=== PATIENT | female | born 1975 | race Caucasian/White ===

== ENCOUNTER 2017-07-19 19:00 | Emergency (ER) | payer BC ==
[2017-07-19] MEDS: LIDO:MAALOX:DONNATAL 1:1:1 15 ML SINGLE DOSE SWSW ×2 (20:39)
== END 2017-07-19 21:56 | disposition home or self-care (01) ==
LOC: ER 19:00
DX: R07.89 Other chest pain (principal); J45.909 Unspecified asthma, uncomplicated; E11.9 Type 2 diabetes mellitus without complications; F20.9 Schizophrenia, unspecified; K21.9 Gastro-esophageal reflux disease without esophagitis; Z88.0 Allergy status to penicillin; Z79.899 Other long term (current) drug therapy; Z98.51 Tubal ligation status
CPT/HCPCS: 71046; 93005; 99284-25

== ENCOUNTER → 2017-08-05 | Outpatient (CLI) | payer BC ==
[2017-08-05 14:59] LABS: ADD MAN DIFF? NO
[2017-08-05 15:01] LABS: BASO % 1 % (0-3); EOS % 0 % (0-3); HEMATOCRIT 39.9 % (36.0-47.0); HEMOGLOBIN 13.2 g/dL (12.0-15.5); LYMPH # 2.4 x10^3/uL (1.0-4.8); LYMPH % 27 % (24-48); MEAN CORPUSCULAR HEMOGLOBIN 25 pg (25-35); MEAN CORPUSCULAR HGB CONC 33 g/dL (31-37); MEAN CORPUSCULAR VOLUME 76 fL (79-100); MONO # 0.7 x10^3/uL (0.0-1.1); MONO % 8 % (0-9); NEUT # 5.6 x10^3uL (1.8-7.7); NEUT % 64 % (31-73); PLATELET COUNT 228 x10^3/uL (140-400); RED BLOOD COUNT 5.22 x10^6/uL (3.50-5.40); RED CELL DISTRIBUTION WIDTH 25.8 % (11.5-14.5); WHITE BLOOD COUNT 8.7 x10^3/uL (4.0-11.0)
[2017-08-05 15:11] LABS: BILIRUBIN,URINE NEGATIVE (NEG); CLARITY,URINE CLEAR; COLOR,URINE YELLOW; GLUCOSE,URINE NEGATIVE (NEG); NITRITE,URINE NEGATIVE (NEG); PH,URINE 5.5; PROTEIN,URINE NEGATIVE (NEG-TRACE); UROBILINOGEN,URINE 0.2 mg/dL (0.2 mg/dL)
[2017-08-05 15:20] LABS: BACTERIA,URINE FEW /HPF (0-FEW); RBC,URINE 0 /HPF (0-2); SQUAMOUS EPITHELIAL CELL,UR OCC /LPF; WBC,URINE OCC /HPF (0-4)
[2017-08-05 15:31] LABS: ALBUMIN 3.7 g/dL (3.4-5.0); ALBUMIN/GLOBULIN RATIO 1.2 (1.0-1.7); ALK PHOS 106 U/L (46-116); ALT (SGPT) 52 U/L (14-59); ANION GAP 12 (6-14); AST (SGOT) 31 U/L (15-37); BLOOD UREA NITROGEN 10 mg/dL (7-20); BUN/CREATININE RATIO 17 (6-20); CALCIUM 8.8 mg/dL (8.5-10.1); CARBON DIOXIDE 25 mmol/L (21-32); CHLORIDE 101 mmol/L (98-107); CREATININE 0.6 mg/dL (0.6-1.0); GFR 110.7; GLUCOSE 99 mg/dL (70-99); POTASSIUM 4.1 mmol/L (3.5-5.1); SODIUM 138 mmol/L (136-145); TOTAL BILIRUBIN 0.3 mg/dL (0.2-1.0); TOTAL PROTEIN 6.8 g/dL (6.4-8.2)
[2017-08-05 15:57] LABS: PLT ESTIMATE ADEQUATE (ADEQUATE); POLYCHROMASIA SLIGHT
[2017-08-05 15:58] LABS: CRENATED RBC PRESENT; OVALOCYTES OCC
== END | disposition home or self-care (01) ==
LOC: SURGPAT 13:48
DX: Z01.818 Encounter for other preprocedural examination (principal); E11.9 Type 2 diabetes mellitus without complications; J45.909 Unspecified asthma, uncomplicated
CPT/HCPCS: 36415; 80053; 81001; 85025

== ENCOUNTER 2017-08-12 06:46 | Inpatient (IN) | payer BC ==
[2017-08-12] MEDS ORDERED: MORPHINE SULFATE 4 MG/ML DISP.SYRIN. IV (07:00)
[2017-08-12] MEDS ORDERED: ONDANSETRON PF 4 MG/2 ML VIAL. IV (07:00)
[2017-08-12] MEDS ORDERED: fentaNYL PF VIAL 100 MCG/2 ML VIAL IV (07:00)
[2017-08-12] MEDS ORDERED: LIDOCAINE 1% PF 2 ML VIAL. ID (07:00)
[2017-08-12 07:20] LABS: POC GLUCOSE 153 mg/dL (70-99)
[2017-08-12] MEDS: IV RINGERS,LACTATED 1000ML 1,000 ML IV ×2 (07:24→07:25)
[2017-08-12] MEDS ORDERED: ONDANSETRON PF 4 MG/2 ML VIAL. (08:10)
[2017-08-12] MEDS ORDERED: DEXAMETHASONE SOD PHOS 20 MG/5 ML VIAL. (08:10)
[2017-08-12] MEDS ORDERED: KETOROLAC 30 MG/ML INJ FOR OR. INJ (08:10)
[2017-08-12] MEDS ORDERED: ROCURONIUM 50 MG/5 ML VIAL. (08:10)
[2017-08-12] MEDS ORDERED: SEVOFLURANE 61 TO 120 MINUTES. IH (08:10)
[2017-08-12] MEDS ORDERED: fentaNYL PF VIAL 100 MCG/2 ML VIAL (08:12)
[2017-08-12 08:20] LABS: NEG OBC UR NEG; POS OBC UR POS; U PREG PATIENT NEGATIVE (NEG)
[2017-08-12] MEDS: CLINDAMYCIN 900MG PREMIX 50 ML IV (08:32)
[2017-08-12] MEDS: BUPIVAC MPF-EPI 0.5%-1:200000 30 ML VIAL. INJ (09:02)
[2017-08-12] MEDS ORDERED: diphenhydrAMINE 50 MG/ML VIAL IV (10:15)
[2017-08-12] MEDS ORDERED: ZOLPIDEM 5 MG TABLET. PO (10:15)
[2017-08-12] MEDS ORDERED: NALOXONE 0.4 MG/ML VIAL. IV (10:15)
[2017-08-12] MEDS ORDERED: MAG HYDROX/ALUMINUM HYD/SIMETH 30 ML ORAL.SUSP PO (10:15)
[2017-08-12] MEDS ORDERED: LACTULOSE 20 GM/30 ML SOLUTION. PO (10:15)
[2017-08-12] MEDS ORDERED: diphenhydrAMINE HCL 25 MG CAPSULE PO (10:15)
[2017-08-12] MEDS ORDERED: 0.9 % SODIUM CHLORIDE 10 ML DISP.SYRIN. IV (10:15)
[2017-08-12] MEDS ORDERED: MAGNESIUM HYDROXIDE 2,400 MG/30 ML ORAL.SUSP. PO (10:15)
[2017-08-12] MEDS ORDERED: CALCIUM CARBONATE 500 MG TAB.CHEW PO (10:15)
[2017-08-12] MEDS: PROCHLORPERAZINE 10 MG/2 ML VIAL. IV (10:40)
[2017-08-12] MEDS: fentaNYL PF VIAL 100 MCG/2 ML VIAL IV ×2 (10:42→11:22)
[2017-08-12] MEDS ORDERED: BUPIVAC MPF-EPI 0.5%-1:200000 30 ML VIAL. INJ (10:45)
[2017-08-12 11:15] LABS: POC GLUCOSE 201 mg/dL (70-99)
[2017-08-12] MEDS: oxyCODONE/APAP 5/325 1 TAB TABLET PO (12:11)
[2017-08-12 14:13] LABS: POC GLUCOSE 300 mg/dL (70-99)
[2017-08-12] MEDS ORDERED: DEXTROSE 50% 25 GM / 50ML DISP.SYRIN. IV (15:15)
[2017-08-12] MEDS: PARoxetine 20 MG TABLET PO (15:31)
[2017-08-12] MEDS: ONDANSETRON PF 4 MG/2 ML VIAL. IV (15:32)
[2017-08-12] MEDS: KETOROLAC 30 MG/ML INJ. IV (15:32)
[2017-08-12] MEDS: INSULIN ASPART 300 UNITS/3 ML INSULN.PEN SQ (15:36)
[2017-08-12 16:21] LABS: HEMATOCRIT 31.5 % (36.0-47.0); HEMOGLOBIN 10.3 g/dL (12.0-15.5); MEAN CORPUSCULAR HEMOGLOBIN 26 pg (25-35); MEAN CORPUSCULAR HGB CONC 33 g/dL (31-37); MEAN CORPUSCULAR VOLUME 78 fL (79-100); PLATELET COUNT 249 x10^3/uL (140-400); RED BLOOD COUNT 4.05 x10^6/uL (3.50-5.40); RED CELL DISTRIBUTION WIDTH 24.7 % (11.5-14.5); WHITE BLOOD COUNT 16.6 x10^3/uL (4.0-11.0)
[2017-08-12 16:38] LABS: POC GLUCOSE 252 mg/dL (70-99)
[2017-08-12] MEDS: HYDROcodone/APAP 5/325MG 1 TAB TABLET PO ×2 (17:53→22:17)
[2017-08-12 20:31] LABS: POC GLUCOSE 195 mg/dL (70-99)
[2017-08-12] MEDS: TOPIRAMATE 100 MG TABLET. PO (21:00)
[2017-08-12] MEDS: SIMETHICONE 80 MG TAB.CHEW PO (22:18)
[2017-08-12] MEDS: cloZAPine 100 MG TABLET PO (22:19)
[2017-08-12] MEDS ORDERED: AMMONIA AROMATIC 15% INHALANT AMPUL. ×2 (23:00→23:23)
[2017-08-13] MEDS: HYDROcodone/APAP 5/325MG 1 TAB TABLET PO ×4 (00:51→21:42)
[2017-08-13 06:57] LABS: ANION GAP 9 (6-14); BLOOD UREA NITROGEN 13 mg/dL (7-20); CALCIUM 8.1 mg/dL (8.5-10.1); CARBON DIOXIDE 22 mmol/L (21-32); CHLORIDE 105 mmol/L (98-107); CREATININE 0.9 mg/dL (0.6-1.0); GFR 69.3; GLUCOSE 165 mg/dL (70-99); SODIUM 136 mmol/L (136-145)
[2017-08-13 06:58] LABS: POTASSIUM 5.2 mmol/L (3.5-5.1)
[2017-08-13] MEDS: INSULIN ASPART 300 UNITS/3 ML INSULN.PEN SQ (08:00)
[2017-08-13 08:07] LABS: ADD MAN DIFF? NO
[2017-08-13 08:12] LABS: BASO % 0 % (0-3); EOS % 0 % (0-3); HEMATOCRIT 25.4 % (36.0-47.0); HEMOGLOBIN 8.2 g/dL (12.0-15.5); LYMPH # 1.9 x10^3/uL (1.0-4.8); LYMPH % 17 % (24-48); MEAN CORPUSCULAR HEMOGLOBIN 25 pg (25-35); MEAN CORPUSCULAR HGB CONC 32 g/dL (31-37); MEAN CORPUSCULAR VOLUME 78 fL (79-100); MONO # 0.9 x10^3/uL (0.0-1.1); MONO % 8 % (0-9); NEUT # 8.4 x10^3uL (1.8-7.7); NEUT % 75 % (31-73); PLATELET COUNT 201 x10^3/uL (140-400); RED BLOOD COUNT 3.25 x10^6/uL (3.50-5.40); RED CELL DISTRIBUTION WIDTH 24.4 % (11.5-14.5); WHITE BLOOD COUNT 11.2 x10^3/uL (4.0-11.0)
[2017-08-13 08:29] LABS: POC GLUCOSE 147 mg/dL (70-99)
[2017-08-13] MEDS: PARoxetine 20 MG TABLET PO (09:00)
[2017-08-13] MEDS: TOPIRAMATE 100 MG TABLET. PO ×2 (09:00→21:00)
[2017-08-13] MEDS: FERROUS SULFATE 325 MG TABLET. PO ×2 (09:30→17:00)
[2017-08-13 10:21] LABS: INR 1.1 (0.8-1.1); PARTIAL THROMBOPLASTIN TIME 22 SEC (24-38); PROTHROMBIN TIME PATIENT 13.6 SEC (11.7-14.0)
[2017-08-13 10:46] LABS: ANISOCYTOSIS MOD; OVALOCYTES PRESENT; PLT ESTIMATE ADEQUATE (ADEQUATE); POIKILOCYTOSIS PRESENT
[2017-08-13 11:37] LABS: POC GLUCOSE 149 mg/dL (70-99)
[2017-08-13] MEDS ORDERED: IV RINGERS,LACTATED 1000ML 1,000 ML IV (12:50)
[2017-08-13] MEDS ORDERED: ONDANSETRON PF 4 MG/2 ML VIAL. IV ×2 (13:00→17:45)
[2017-08-13] MEDS ORDERED: LIDOCAINE 1% PF 2 ML VIAL. ID (13:00)
[2017-08-13] MEDS ORDERED: PROCHLORPERAZINE 10 MG/2 ML VIAL. IV (13:00)
[2017-08-13] MEDS ORDERED: fentaNYL PF VIAL 100 MCG/2 ML VIAL IV ×3 (13:00→20:30)
[2017-08-13] MEDS ORDERED: MORPHINE SULFATE 4 MG/ML DISP.SYRIN. IV ×2 (13:00→18:30)
[2017-08-13] MEDS ORDERED: CLINDAMYCIN 900MG PREMIX 50 ML IV ×2 (13:14→13:30)
[2017-08-13 13:31] LABS: HEMATOCRIT 22.8 % (36.0-47.0); HEMOGLOBIN 7.6 g/dL (12.0-15.5); MEAN CORPUSCULAR HEMOGLOBIN 26 pg (25-35); MEAN CORPUSCULAR HGB CONC 34 g/dL (31-37); MEAN CORPUSCULAR VOLUME 78 fL (79-100); PLATELET COUNT 186 x10^3/uL (140-400); RED BLOOD COUNT 2.92 x10^6/uL (3.50-5.40); RED CELL DISTRIBUTION WIDTH 24.1 % (11.5-14.5); WHITE BLOOD COUNT 9.8 x10^3/uL (4.0-11.0)
[2017-08-13] MEDS ORDERED: PROPOFOL 20 ML IV (13:55)
[2017-08-13] MEDS ORDERED: ROCURONIUM 50 MG/5 ML VIAL. ×2 (13:55→15:01)
[2017-08-13] MEDS ORDERED: DEXAMETHASONE SOD PHOS 20 MG/5 ML VIAL. (13:55)
[2017-08-13] MEDS ORDERED: LIDOCAINE 2% PF Vial for OR 5 ML VIAL. (13:55)
[2017-08-13] MEDS ORDERED: ONDANSETRON PF 4 MG/2 ML VIAL. (13:55)
[2017-08-13] MEDS ORDERED: fentaNYL PF VIAL 100 MCG/2 ML VIAL ×2 (13:57→20:26)
[2017-08-13] MEDS ORDERED: MIDAZOLAM HCL/PF 2 MG/2 ML VIAL. (13:57)
[2017-08-13] MEDS ORDERED: SUCCINYLCHOLINE 200 MG/10 ML VIAL. (13:57)
[2017-08-13] MEDS ORDERED: METHYLENE BLUE 1% 10 ML VIAL. (14:00)
[2017-08-13] MEDS ORDERED: CLINDAMYCIN PREMIX 900 MG/50 ML BAG IV (14:00)
[2017-08-13] MEDS ORDERED: 0.9 % SODIUM CHLORIDE 50 ML VIAL. IJ (14:00)
[2017-08-13] MEDS: BUPIVACAINE-EPI 0.25%-1:200000 50 ML VIAL. (14:42)
[2017-08-13] MEDS ORDERED: NEOSTIGMINE 10 MG/10 ML VIAL. (15:04)
[2017-08-13] MEDS ORDERED: GLYCOPYRROLATE 1 MG/5 ML VIAL. (15:05)
[2017-08-13] MEDS ORDERED: ALBUMIN HUMAN 5% 500 ML IV (15:19)
[2017-08-13] MEDS ORDERED: PHENYLEPHRINE 10 MG/ML VIAL. (15:27)
[2017-08-13] MEDS ORDERED: DESMOPRESSIN 20 MCG in IV NORMAL SALINE 50ML 50 ML IV (16:30)
[2017-08-13 17:00] LABS: IMMEDIATE SPIN CROSSMATCH 1
[2017-08-13] MEDS ORDERED: LACTULOSE 20 GM/30 ML SOLUTION. PO (17:45)
[2017-08-13] MEDS ORDERED: CALCIUM CARBONATE 500 MG TAB.CHEW PO (17:45)
[2017-08-13] MEDS ORDERED: diphenhydrAMINE 50 MG/ML VIAL IV (17:45)
[2017-08-13] MEDS ORDERED: NALOXONE 0.4 MG/ML VIAL. IV (17:45)
[2017-08-13] MEDS ORDERED: MAGNESIUM HYDROXIDE 2,400 MG/30 ML ORAL.SUSP. PO (17:45)
[2017-08-13] MEDS ORDERED: SIMETHICONE 80 MG TAB.CHEW PO (17:45)
[2017-08-13] MEDS ORDERED: DEXTROSE 50% 25 GM / 50ML DISP.SYRIN. IV (17:45)
[2017-08-13] MEDS ORDERED: diphenhydrAMINE HCL 25 MG CAPSULE PO (17:45)
[2017-08-13] MEDS ORDERED: MAG HYDROX/ALUMINUM HYD/SIMETH 30 ML ORAL.SUSP PO (17:45)
[2017-08-13] MEDS ORDERED: 0.9 % SODIUM CHLORIDE 10 ML DISP.SYRIN. IV (17:45)
[2017-08-13] MEDS ORDERED: oxyCODONE/APAP 5/325 1 TAB TABLET PO (17:45)
[2017-08-13 17:47] LABS: IMMEDIATE SPIN CROSSMATCH 1
[2017-08-13 18:16] LABS: POC GLUCOSE 210 mg/dL (70-99)
[2017-08-13] MEDS: INSULIN ASPART 100 UNIT/ML 10ML VIAL. SQ (18:31)
[2017-08-13] MEDS ORDERED: diphenhydrAMINE 50 MG/ML VIAL IVP (19:00)
[2017-08-13] MEDS: diphenhydrAMINE 50 MG/ML VIAL IVP (19:04)
[2017-08-13] MEDS ORDERED: ALBUTEROL SULFATE 2.5 MG/3 ML NEBU. (19:13)
[2017-08-13] MEDS: ALBUTEROL SULFATE 2.5 MG/3 ML NEBU. NEB (19:19)
[2017-08-13 19:23] LABS: FIBRINOGEN 133 mg/dL (200-440); INR 1.2 (0.8-1.1); PARTIAL THROMBOPLASTIN TIME 24 SEC (24-38); PROTHROMBIN TIME PATIENT 14.7 SEC (11.7-14.0)
[2017-08-13 19:24] LABS: BASO % 0 % (0-3); EOS % 0 % (0-3); HEMATOCRIT 28.5 % (36.0-47.0); HEMOGLOBIN 9.2 g/dL (12.0-15.5); LYMPH # 0.7 x10^3/uL (1.0-4.8); LYMPH % 4 % (24-48); MEAN CORPUSCULAR HEMOGLOBIN 27 pg (25-35); MEAN CORPUSCULAR HGB CONC 32 g/dL (31-37); MEAN CORPUSCULAR VOLUME 83 fL (79-100); MONO # 0.4 x10^3/uL (0.0-1.1); MONO % 2 % (0-9); NEUT # 16.5 x10^3uL (1.8-7.7); NEUT % 94 % (31-73); PLATELET COUNT 134 x10^3/uL (140-400); RED BLOOD COUNT 3.46 x10^6/uL (3.50-5.40); RED CELL DISTRIBUTION WIDTH 21.4 % (11.5-14.5); WHITE BLOOD COUNT 17.6 x10^3/uL (4.0-11.0)
[2017-08-13 19:30] LABS: ADD MAN DIFF? YES
[2017-08-13] MEDS ORDERED: IV RINGERS,LACTATED 500ML 1,000 ML IV (19:30)
[2017-08-13 20:01] LABS: BASE EXCESS ABG -8 mmol/L (-3-3); BODY TEMP ABG 97.4 DEG; CORRECTED PCO2 ABG 37 mmHg; CORRECTED PO2 ABG 68 mmHg; HCO3 ABG 18 mmol/L (21-28); SAT O2 ABG 93 % (92-99)
[2017-08-13 20:02] LABS: PCO2 ABG 39 mmHg (35-46)
[2017-08-13 20:03] LABS: FIO2 ABG 60; PO2 ABG 72 mmHg (75-108)
[2017-08-13] MEDS: methylPREDNISolone SOD SUCC PF 40 MG/ML VIAL. IV ×2 (20:30→21:09)
[2017-08-13] MEDS: fentaNYL PF VIAL 100 MCG/2 ML VIAL IV ×2 (20:33→21:00)
[2017-08-13 20:51] LABS: % BANDS 5 % (0-9); % LYMPHS 4 % (24-48); % METAS 1 % (0-0); % MONOS 2 % (0-10); % MYELOS 1 % (0-0); % SEGS 87 % (35-66); ANISOCYTOSIS MOD; CRENATED RBC PRESENT; HYPOCHROMIA SLIGHT; PLT ESTIMATE ADEQUATE (ADEQUATE)
[2017-08-13] MEDS: cloZAPine 100 MG TABLET PO (21:00)
[2017-08-13] MEDS: FUROSEMIDE 40 MG/4 ML VIAL. IVP (21:08)
[2017-08-13] MEDS: SODIUM BICARB ADULT 8.4% 50 MEQ/50 ML DISP.SYRIN. IV (21:10)
[2017-08-13] MEDS: ONDANSETRON PF 4 MG/2 ML VIAL. IV (21:28)
[2017-08-13] MEDS: IPRATRPIUM/ALBUTEROL 0.5/2.5MG 3 ML NEBU. NEB (22:52)
[2017-08-13 23:21] LABS: IMMEDIATE SPIN CROSSMATCH 5
[2017-08-13] MEDS: MORPHINE SULFATE 4 MG/ML DISP.SYRIN. IV (23:39)
[2017-08-13 23:48] LABS: IMMEDIATE SPIN CROSSMATCH 5 5
[2017-08-14] MEDS: IPRATRPIUM/ALBUTEROL 0.5/2.5MG 3 ML NEBU. NEB ×5 (03:00→19:21)
[2017-08-14 05:06] LABS: ADD MAN DIFF? NO
[2017-08-14 05:20] LABS: BASO % 0 % (0-3); EOS % 0 % (0-3); HEMOGLOBIN 8.9 g/dL (12.0-15.5); LYMPH # 0.8 x10^3/uL (1.0-4.8); LYMPH % 5 % (24-48); MEAN CORPUSCULAR HEMOGLOBIN 27 pg (25-35); MEAN CORPUSCULAR HGB CONC 33 g/dL (31-37); MEAN CORPUSCULAR VOLUME 81 fL (79-100); MONO # 0.4 x10^3/uL (0.0-1.1); MONO % 3 % (0-9); NEUT # 13.4 x10^3uL (1.8-7.7); NEUT % 92 % (31-73); PLATELET COUNT 126 x10^3/uL (140-400); RED BLOOD COUNT 3.36 x10^6/uL (3.50-5.40); RED CELL DISTRIBUTION WIDTH 21.4 % (11.5-14.5); WHITE BLOOD COUNT 14.6 x10^3/uL (4.0-11.0)
[2017-08-14 05:26] LABS: FIBRINOGEN 193 mg/dL (200-440); INR 1.2 (0.8-1.1); PARTIAL THROMBOPLASTIN TIME 23 SEC (24-38); PROTHROMBIN TIME PATIENT 14.2 SEC (11.7-14.0)
[2017-08-14 05:38] LABS: ANION GAP 8 (6-14); BLOOD UREA NITROGEN 8 mg/dL (7-20); CALCIUM 7.7 mg/dL (8.5-10.1); CARBON DIOXIDE 26 mmol/L (21-32); CHLORIDE 100 mmol/L (98-107); CREATININE 0.6 mg/dL (0.6-1.0); GFR 110.7; GLUCOSE 202 mg/dL (70-99); POTASSIUM 3.5 mmol/L (3.5-5.1); SODIUM 134 mmol/L (136-145)
[2017-08-14] MEDS: MORPHINE SULFATE 4 MG/ML DISP.SYRIN. IV ×2 (06:25→08:09)
[2017-08-14] MEDS: FERROUS SULFATE 325 MG TABLET. PO ×2 (08:00→17:27)
[2017-08-14] MEDS: INSULIN ASPART 300 UNITS/3 ML INSULN.PEN SQ ×2 (08:00→17:00)
[2017-08-14] MEDS: HYDROcodone/APAP 5/325MG 1 TAB TABLET PO ×2 (10:27→14:45)
[2017-08-14 12:02] LABS: POC GLUCOSE 139 mg/dL (70-99)
[2017-08-14] MEDS: KETOROLAC 30 MG/ML INJ. IV (12:30)
[2017-08-14] MEDS: TOPIRAMATE 100 MG TABLET. PO ×2 (12:31→22:01)
[2017-08-14] MEDS: PARoxetine 20 MG TABLET PO (12:31)
[2017-08-14 16:18] LABS: MRSA BY PCR Negative (Negative)
[2017-08-14 17:18] LABS: POC GLUCOSE 114 mg/dL (70-99)
[2017-08-14] MEDS: BUDESONIDE 0.5 MG/2 ML NEBU. NEB (19:21)
[2017-08-14 20:43] LABS: POC GLUCOSE 123 mg/dL (70-99)
[2017-08-14] MEDS: LACTOBACILLUS RHAMNOSUS GG 1 CAPSULE. PO (22:01)
[2017-08-14] MEDS: cloZAPine 100 MG TABLET PO (22:04)
[2017-08-14] MEDS: ZOLPIDEM 5 MG TABLET. PO (22:04)
[2017-08-15] MEDS: IPRATRPIUM/ALBUTEROL 0.5/2.5MG 3 ML NEBU. NEB ×3 (00:40→09:28)
[2017-08-15] MEDS ORDERED: AMMONIA AROMATIC 15% INHALANT AMPUL. ×2 (04:54→05:00)
[2017-08-15] MEDS: HYDROcodone/APAP 5/325MG 1 TAB TABLET PO ×2 (04:57→06:44)
[2017-08-15 05:30] LABS: PARTIAL THROMBOPLASTIN TIME 25 SEC (24-38)
[2017-08-15 05:31] LABS: FIBRINOGEN 176 mg/dL (200-440); INR 1.1 (0.8-1.1); PROTHROMBIN TIME PATIENT 13.2 SEC (11.7-14.0)
[2017-08-15 06:15] LABS: ALBUMIN 3.4 g/dL (3.4-5.0); ALBUMIN/GLOBULIN RATIO 1.4 (1.0-1.7); ALK PHOS 69 U/L (46-116); ALT (SGPT) 41 U/L (14-59); ANION GAP 15 (6-14); AST (SGOT) 19 U/L (15-37); BLOOD UREA NITROGEN 9 mg/dL (7-20); BUN/CREATININE RATIO 11 (6-20); CALCIUM 8.3 mg/dL (8.5-10.1); CARBON DIOXIDE 18 mmol/L (21-32); CHLORIDE 98 mmol/L (98-107); CREATININE 0.8 mg/dL (0.6-1.0); GFR 79.4; GLUCOSE 107 mg/dL (70-99); POTASSIUM 3.2 mmol/L (3.5-5.1); SODIUM 131 mmol/L (136-145); TOTAL BILIRUBIN 0.4 mg/dL (0.2-1.0); TOTAL PROTEIN 5.8 g/dL (6.4-8.2)
[2017-08-15] MEDS: INSULIN ASPART 300 UNITS/3 ML INSULN.PEN SQ (08:00)
[2017-08-15 08:03] LABS: POC GLUCOSE 121 mg/dL (70-99)
[2017-08-15 08:03] LABS: ADD MAN DIFF? NO
[2017-08-15] MEDS: FERROUS SULFATE 325 MG TABLET. PO (08:07)
[2017-08-15] MEDS: PARoxetine 20 MG TABLET PO (08:07)
[2017-08-15] MEDS: LACTOBACILLUS RHAMNOSUS GG 1 CAPSULE. PO (08:07)
[2017-08-15] MEDS: TOPIRAMATE 100 MG TABLET. PO (08:08)
[2017-08-15 08:09] LABS: BASO % 0 % (0-3); EOS % 0 % (0-3); HEMATOCRIT 25.9 % (36.0-47.0); HEMOGLOBIN 8.6 g/dL (12.0-15.5); LYMPH # 2.7 x10^3/uL (1.0-4.8); LYMPH % 26 % (24-48); MEAN CORPUSCULAR HEMOGLOBIN 27 pg (25-35); MEAN CORPUSCULAR HGB CONC 33 g/dL (31-37); MEAN CORPUSCULAR VOLUME 80 fL (79-100); MONO # 0.8 x10^3/uL (0.0-1.1); MONO % 7 % (0-9); NEUT # 7.1 x10^3uL (1.8-7.7); NEUT % 67 % (31-73); PLATELET COUNT 131 x10^3/uL (140-400); RED BLOOD COUNT 3.22 x10^6/uL (3.50-5.40); RED CELL DISTRIBUTION WIDTH 21.7 % (11.5-14.5); WHITE BLOOD COUNT 10.6 x10^3/uL (4.0-11.0)
[2017-08-15] MEDS ORDERED: IPRATRPIUM/ALBUTEROL 0.5/2.5MG 3 ML NEBU. NEB (12:00)
== END 2017-08-15 13:25 | disposition home or self-care (01) | DRG 742 ==
LOC: SURG 06:46 → 3 NORTH 08-14 14:00 → 1 WEST ICU 08-13 18:37
PROC: 0UT9FZZ Resection of Uterus, Via Natural or Artificial Opening With Percutaneous Endoscopic Assistance (ICD-10-PCS; principal; 2017-08-12 08:34)
PROC: 0UT7FZZ Resection of Bilateral Fallopian Tubes, Via Natural or Artificial Opening With Percutaneous Endoscopic Assistance (ICD-10-PCS; 2017-08-12 08:34)
PROC: 0WCG4ZZ Extirpation of Matter from Peritoneal Cavity, Percutaneous Endoscopic Approach (ICD-10-PCS; 2017-08-12 08:34)
PROC: 30233L1 Transfusion of Nonautologous Fresh Plasma into Peripheral Vein, Percutaneous Approach (ICD-10-PCS; 2017-08-12 08:34)
PROC: 30233N1 Transfusion of Nonautologous Red Blood Cells into Peripheral Vein, Percutaneous Approach (ICD-10-PCS; 2017-08-12 08:34)
PROC: 30233M1 Transfusion of Nonautologous Plasma Cryoprecipitate into Peripheral Vein, Percutaneous Approach (ICD-10-PCS; 2017-08-12 08:34)
PROC: 30233K1 Transfusion of Nonautologous Frozen Plasma into Peripheral Vein, Percutaneous Approach (ICD-10-PCS; 2017-08-12 08:34)
DX: N92.0 Excessive and frequent menstruation with regular cycle (principal); J96.01 Acute respiratory failure with hypoxia; D68.9 Coagulation defect, unspecified; F20.9 Schizophrenia, unspecified; D64.9 Anemia, unspecified; E11.9 Type 2 diabetes mellitus without complications; J45.901 Unspecified asthma with (acute) exacerbation; D72.829 Elevated white blood cell count, unspecified; Z87.891 Personal history of nicotine dependence; Z90.6 Acquired absence of other parts of urinary tract; Z98.51 Tubal ligation status; F32.9 Major depressive disorder, single episode, unspecified; F41.9 Anxiety disorder, unspecified; S30.1XXA Contusion of abdominal wall, initial encounter; X58.XXXA Exposure to other specified factors, initial encounter; Y93.89 Activity, other specified; Y92.89 Other specified places as the place of occurrence of the external cause; Y99.8 Other external cause status; Z88.0 Allergy status to penicillin
CPT/HCPCS: 36415; 36600; 71045; 76856; 80048; 80053; 81025; 82805; 82962; 85007; 85025; 85027; 85384; 85610; 85730; 86078; 86850; 86900; 86901; 86920; 86927; 87040; 87641; 88307; 94640; C1769; G0378; G0379; J0330; J0780; J1100; J1200; J1815; J1885; J1940; J1956; J2250; J2270; J2405; J2704; J2710; J2920; J3010; J3490; J7030; J7120; J7613; J7620; J7626; P9012; P9016; P9017; P9045; Q9968

== ENCOUNTER 2017-08-18 20:00 | Emergency (ER) | payer BC ==
[2017-08-18 21:09] LABS: BASO # 0.1 x10^3/uL (0.0-0.2); BASO % 1 % (0-3); EOS % 0 % (0-3); HEMATOCRIT 29.6 % (36.0-47.0); HEMOGLOBIN 9.8 g/dL (12.0-15.5); LYMPH # 2.3 x10^3/uL (1.0-4.8); LYMPH % 19 % (24-48); MEAN CORPUSCULAR HEMOGLOBIN 27 pg (25-35); MEAN CORPUSCULAR HGB CONC 33 g/dL (31-37); MEAN CORPUSCULAR VOLUME 81 fL (79-100); MONO # 0.7 x10^3/uL (0.0-1.1); MONO % 6 % (0-9); NEUT # 8.9 x10^3uL (1.8-7.7); NEUT % 75 % (31-73); PLATELET COUNT 206 x10^3/uL (140-400); RED BLOOD COUNT 3.64 x10^6/uL (3.50-5.40); RED CELL DISTRIBUTION WIDTH 20.6 % (11.5-14.5); WHITE BLOOD COUNT 11.9 x10^3/uL (4.0-11.0)
[2017-08-18] MEDS: fentaNYL PF VIAL 100 MCG/2 ML VIAL IV (21:11)
[2017-08-18] MEDS: IV NORMAL SALINE 1000ML BAG 1,000 ML IV (21:12)
[2017-08-18 21:14] LABS: ADD MAN DIFF? YES
[2017-08-18 21:15] LABS: BILIRUBIN,URINE NEGATIVE (NEG); CLARITY,URINE CLOUDY; COLOR,URINE YELLOW; GLUCOSE,URINE NEGATIVE (NEG); NITRITE,URINE NEGATIVE (NEG); PH,URINE 5.5; PROTEIN,URINE NEGATIVE (NEG-TRACE); UROBILINOGEN,URINE 0.2 mg/dL (0.2 mg/dL)
[2017-08-18 21:21] LABS: PROTHROMBIN TIME PATIENT 12.5 SEC (11.7-14.0)
[2017-08-18 21:23] LABS: BACTERIA,URINE FEW /HPF (0-FEW); RBC,URINE 0 /HPF (0-2); SQUAMOUS EPITHELIAL CELL,UR MOD /LPF
[2017-08-18 21:25] LABS: ANION GAP 8 (6-14); BLOOD UREA NITROGEN 9 mg/dL (7-20); BUN/CREATININE RATIO 13 (6-20); CALCIUM 8.8 mg/dL (8.5-10.1); CARBON DIOXIDE 26 mmol/L (21-32); CHLORIDE 104 mmol/L (98-107); CREATININE 0.7 mg/dL (0.6-1.0); GFR 92.7; GLUCOSE 181 mg/dL (70-99); POTASSIUM 4.1 mmol/L (3.5-5.1); SODIUM 138 mmol/L (136-145)
[2017-08-18] MEDS ORDERED: CONTRAST GIVEN MC (21:30)
[2017-08-18 21:31] LABS: ALBUMIN 3.4 g/dL (3.4-5.0); ALBUMIN/GLOBULIN RATIO 1.4 (1.0-1.7); ALK PHOS 111 U/L (46-116); ALT (SGPT) 31 U/L (14-59); AST (SGOT) 15 U/L (15-37); LIPASE 146 U/L (73-393); TOTAL BILIRUBIN 0.4 mg/dL (0.2-1.0); TOTAL PROTEIN 5.8 g/dL (6.4-8.2)
[2017-08-18 21:35] LABS: LACTIC ACID 1.7 mmol/L (0.4-2.0)
[2017-08-18] MEDS: IOHEXOL 300 MG/ML 100ML VIAL. IV (21:38)
[2017-08-18 21:42] LABS: % BANDS 1 % (0-9); % LYMPHS 20 % (24-48); % METAS 1 % (0-0); % MONOS 6 % (0-10); % MYELOS 1 % (0-0); % SEGS 71 % (35-66)
[2017-08-18 21:43] LABS: ANISOCYTOSIS MOD; HYPOCHROMIA SLIGHT; MICROCYTOSIS SLIGHT; PLT ESTIMATE ADEQUATE (ADEQUATE); POLYCHROMASIA SLIGHT
== END 2017-08-18 23:45 | disposition home or self-care (01) ==
LOC: ER 20:00
DX: N99.820 Postprocedural hemorrhage of a genitourinary system organ or structure following a genitourinary system procedure (principal); J45.909 Unspecified asthma, uncomplicated; E11.9 Type 2 diabetes mellitus without complications; F20.9 Schizophrenia, unspecified; Z88.0 Allergy status to penicillin; Z98.51 Tubal ligation status; Y83.8 Other surgical procedures as the cause of abnormal reaction of the patient, or of later complication, without mention of misadventure at the time of the procedure; Y92.89 Other specified places as the place of occurrence of the external cause
CPT/HCPCS: 36415; 74177; 80053; 81001; 83605; 83690; 85007; 85025; 85610; 87086; 96361; 96374; 99285-25; J3010; J7030; Q9967

== ENCOUNTER → 2018-01-19 | Outpatient (CLI) | payer BC ==
[2017-08-18 23:21] VITALS: BP 109/62
[~2018-01-19] MED LIST: ATOR40TA59 PO; CLOZ100T7 PO; FERR325T14 PO; METF10003 PO; OLAN10TA9 PO; OMEP40CA5 PO; PANT20TA2 PO; PARO40TA3 PO; RANI300C PO; TOPI100T8 PO
--- NOTE | 2018-01-19 17:30 | RAD ---
EXAM: AP, lateral, bilateral oblique and odontoid views of the cervical spine DATE: 01/19/2018 10:11 AM INDICATION: no trauma neck pain COMPARISON: No Prior FINDINGS: The cervical spine is imaged from the skull base through C7. Intervertebral disc heights are grossly preserved. Vertebral body heights are preserved. Normal cervical lordosis. No significant spondylolisthesis. On the bilateral oblique views, no significant neural foraminal narrowing. Mild facet degenerative changes at C3-4, C4-5, left greater than right. There is no offset of the lateral masses of C1 on C2. Normal predental space. No significant prevertebral soft tissue swelling. IMPRESSION: 1. Mild facet degenerative changes at C3-4 and C4-5 left greater than right. 2. No evidence for acute fracture or subluxation. Electronically signed by: Cameron Goldstein MD (01/19/2018 5:26 PM) [facility]
== END | disposition home or self-care (01) ==
LOC: RAD 09:50
PROVIDERS: ATTEND Internal Medicine
DX: M47.892 Other spondylosis, cervical region (principal); E11.9 Type 2 diabetes mellitus without complications; Z87.891 Personal history of nicotine dependence; Z88.0 Allergy status to penicillin
CPT/HCPCS: 72050